=== PATIENT | female | born 1950 | race Caucasian/White ===

== ENCOUNTER → 2018-10-12 | Outpatient (CLI) | payer OTHER ==
[~2018-10-12] MED LIST: ALEN70TA43 PO; ASCO500T PO; AZIT-1 PO; CEPH500C24 PO; CHOL10005 PO; DEN60I SUBQ; FLAX100030 PO; FLU60VIA31 IM; MULT-1335 PO; MULT-19 PO; OMEG-32 PO; PNEU0.5D3 IM; [UNRECOGNIZED DRUG - OTHER] OS
== END ==
LOC: LAB 07:36
PROVIDERS: ATTEND Emergency Medicine
DX: E78.5 Hyperlipidemia, unspecified (principal)
CPT/HCPCS: 36415; 82465; 83718; 84478

== ENCOUNTER → 2018-10-13 | Outpatient (CLI) | payer OTHER ==
[2018-10-13 09:13] LABS: PLATELET COUNT, AUTOMATED 361 K/uL (150-450)
== END ==
LOC: LAB 08:40
PROVIDERS: ATTEND Emergency Medicine
DX: M85.80 Other specified disorders of bone density and structure, unspecified site (principal); E78.5 Hyperlipidemia, unspecified; R20.8 Other disturbances of skin sensation
CPT/HCPCS: 36415; 82040; 82247; 82306; 82310; 82374; 82435; 82565; 82607; 82947; 84075; 84132; 84155; 84295; 84443; 84450; 84460; 84520; 85007; 85027

== ENCOUNTER → 2018-10-14 | Outpatient (CLI) | payer OTHER ==
--- NOTE | 2018-10-15 09:32 | RADIOLOGY IMAGING REPORT ---
FACILITY: [facility] [place] PATIENT NAME: MICHELLE BENJAMIN : [id number] MR: [id number] V: [id number] EXAM DATE: ORDERING PHYSICIAN: SHERIE MENDEZ TECHNOLOGIST: Niya Moreno PROCEDURE: BILATERAL DIGITAL SCREENING MAMMOGRAM WITH CAD ASSISTED INTERPRETATION & 3D TOMOSYNTHESIS REASON FOR STUDY: Screening FAMILY HISTORY OF BREAST CANCER: Sister age 50 BREAST PROCEDURES/TREATMENTS: None COMPARISON: 12/26/16, 06/13/15, 11/25/12, 11/24/11 VIEWS OBTAINED: Bilateral 2D & 3D full field CC & MLO projections BREAST DENSITY: The breasts are heterogeneously dense which can obscure small masses. MAMMOGRAM FINDINGS: Just lateral to midline in the middle depth on the Left CC view is a round circumscribed mass best appreciated on tomographic slice #37. This is not as well seen on the MLO view. Spot compression view in the Left CC projection & a mediolateral view of the Left breast recommended. IMPRESSION: BIRADS 0: Incomplete, need additional imaging evaluation. Additional views of the Left breast, possibly Left breast Ultrasound recommended depending on the additional imaging findings. DIAGNOSTIC CATEGORY 0--INCOMPLETE: NEED ADDITIONAL IMAGING EVALUATION. RECOMMENDATIONS: ADDITIONAL MAMMOGRAPHIC VIEWS REQUIRED: LEFT BREAST. ULTRASOUND: LEFT BREAST. Dictated by: Ama Dos Santos M.D. on 10/14/2018 at 17:22 Transcribed by: LINDA on 10/15/2018 at 8:35 Approved by: Ama Dos Santos M.D. on 10/15/2018 at 9:28 [facility]
== END ==
LOC: MAMO 00:42
PROVIDERS: ATTEND Emergency Medicine
DX: R92.2 Inconclusive mammogram (principal); Z80.3 Family history of malignant neoplasm of breast
CPT/HCPCS: 77063; 77067

== ENCOUNTER → 2018-10-27 | Outpatient (CLI) | payer OTHER ==
--- NOTE | 2018-10-27 16:22 | RADIOLOGY IMAGING REPORT ---
FACILITY: [facility] PATIENT NAME: MICHELLE BENJAMIN : [id number] MR: [id number] V: [id number] EXAM DATE: [id number] ORDERING PHYSICIAN: SHERIE MENDEZ TECHNOLOGIST: Sonia Pizano PROCEDURE:LEFT DIGITAL MAMMOGRAM DIAGNOSTIC WITH CAD ASSISTED INTERPRETATION & 3D TOMOSYNTHESIS REASON FOR STUDY: Abnormal mammogram. COMPARISON STUDIES: 10/14/18, 12/26/16, 06/13/15, 11/25/12, 11/24/11. VIEWS OBTAINED: 2D & 3D full field Left ML projection & A 2D & 3D Spot compression view in the Left CC projection. MAMMOGRAM FINDINGS: The previously noted rounded density in the lateral portion of the Left breast on the recent Left CC view appeared compressible and apparently represented a summation shadow. DIAGNOSTIC CATEGORY 1--NEGATIVE. RECOMMENDATIONS: ROUTINE MAMMOGRAM AND CLINICAL EVALUATION. IMPRESSION: BIRADS 1: Negative. Dictated by: Ama Dos Santos M.D. on 10/27/2018 at 13:51 Transcribed by: RONDA on 10/27/2018 at 14:32 Approved by: Ama Dos Santos M.D. on 10/27/2018 at 16:16 [facility]
== END ==
LOC: MAMO 04:09
PROVIDERS: ATTEND Emergency Medicine
DX: R92.8 Other abnormal and inconclusive findings on diagnostic imaging of breast (principal)
CPT/HCPCS: 77061; 77065